=== PATIENT | female | born 1975 | race Caucasian/White ===

== ENCOUNTER → 2019-11-26 10:14 | Outpatient (CLI) | payer OTHER, SELFPAY ==
--- NOTE | ~2019-11-26 | MM_ITS ---
EXAMINATION: MM screening amarjit BI w wilfred HISTORY: Screening mammogram TECHNIQUE: Craniocaudal and mediolateral oblique 3-D tomosynthesis images were obtained and synthetic 2-D images were generated. CAD analysis was submitted and interpreted. COMPARISON: No prior mammogram is available for comparison at this institution. BREAST PARENCHYMAL COMPOSITION: There are scattered areas of fibroglandular density. FINDINGS: There is no evidence of suspicious mass, calcification, or architectural distortion to sugg est malignancy in either breast. There has been no suspicious interval change. IMPRESSION: 1. No mammographic evidence of malignancy. 2. Recommend routine screening mammography in one year. BI-RADS Category 1: Negative Reviewed, dictated and finalized at location A.
== END ==
PROVIDERS: PCP Physician Assistant; Visit Provider Physician Assistant
DX: Z12.31 Encounter for screening mammogram for malignant neoplasm of breast (principal)
CPT/HCPCS: 77063; 77067

== ENCOUNTER → 2020-06-13 10:36 | Outpatient (CLI) | payer OTHER, SELFPAY ==
--- NOTE | ~2020-06-13 | CT_ITS ---
EXAMINATION: CT abdomen pelvis wo con DATE: 06/13/2020 10:50 INDICATION: Unspecified abdominal pain TECHNIQUE: Computed tomography (CT) of the abdomen and pelvis was performed without intravenous contr ast. The dose-length product (DLP) was 695.59 mGy-cm. Automated exposure control and iterative recons truction technique were employed. COMPARISON: None FINDINGS: Minimal dependent atelectasis is present in the lung bases. The heart size is normal. There is a small sliding hiatal hernia. The gallbladder is surgically absent. The liver, spleen, pancreas, and adrenal glands are normal. The right kidney is atrophic. Nonobstructing stones of the right kidn ey measure up to 9 mm. The left kidney is unremarkable. There is mild right hydroureter which continu es to the level of the iliac vessels. No pathologically enlarged abdominal or pelvic lymph nodes are identified. There is no free intraperitoneal gas or evidence of bowel obstruction. There is mild lumb ar spondylosis. IMPRESSION: 1. Atrophy of the right kidney which contains nonobstructing stones measuring up to 9 mm. Mild right hydroureter continuing to the level of the iliac vessels may reflect chronic obstruction. No acute fi ndings evident. Reviewed, dictated and finalized at location A. IMPRESSION: 1. Atrophy of the right kidney which contains nonobstructing stones measuring u p to 9 mm. Mild right hydroureter continuing to the level of the iliac vessels may reflect chronic obstruction. No acute findings evident.
== END ==
PROVIDERS: PCP Physician Assistant; Visit Provider Physician Assistant
DX: R10.9 Unspecified abdominal pain (principal)
CPT/HCPCS: 74176

== ENCOUNTER 2020-07-18 08:17 | Outpatient (NON) | payer OTHER, SELFPAY ==
[2020-07-19 14:13] LABS: SARS-CoV-2 RNA PCR Negative
== END 2020-07-18 08:18 ==
LOC: ANHCOVIDDT 08:19
PROVIDERS: PCP Physician Assistant; Visit Provider Physician Assistant
DX: Z20.828 Contact with and (suspected) exposure to other viral communicable diseases (principal)
CPT/HCPCS: 87635; C9803; U0003

== ENCOUNTER 2022-01-16 01:10 | Day surgery (SDC) | payer OTHER, SELFPAY ==
[2021-12-27 15:21] VITALS: BMI 32.0
[2022-01-16 07:55] VITALS: BP 120/83; PULSE 114; RESP 18; TEMP 36.3; O2SAT 98; BMI 28.3
[2022-01-16] MEDS: LACTATED RINGERS 1,000 ML 150 ML IV CONT (08:16)
--- NOTE | 2022-01-16 08:31 | WPDANESEPPF ---
Anes - Initial Pre Proc Eval Procedure: Operation Date: 01/16/22 09:30 Proposed Procedures p Esophagogastroduodenoscopy & Screening Colonoscopy - Duong Cabrera MD Date/Time: 01/16/22 08:31 Surgeon: Duong Cabrera MD Pre Op Diagnosis: neoplasm screening, GERD Patient Data Age: 46 Gender: F Height: 1.6 m Weight: 72.6 kg Last Vital Signs Temp 97.3 F L 01/16/22 07:55 Pulse 114 H 01/16/22 07:55 Resp 18 01/16/22 07:55 BP 120/83 01/16/22 07:55 Pulse Ox 98 01/16/22 07:55 Allergies Allergy/AdvReac Type Severity Reaction Status Date / Time codeine Allergy Unknown Nausea and Verified 01/16/22 08:05 Vomiting erythromycin base Allergy Unknown Nausea and Verified 01/16/22 08:05 Vomiting latex Allergy Unknown Rash Verified 01/16/22 08:05 Sulfa (Sulfonamide Allergy Unknown Rash Verified 01/16/22 08:05 Antibiotics) Home Medications Medication Instructions Recorded Confirmed Type sertraline 100 mg tablet 100 mg PO DAILY 02/15/20 01/16/22 History bupropion HCl 150 mg PO DAILY 12/27/21 01/16/22 History cimetidine [Tagamet] 400 mg PO BID 12/27/21 01/16/22 History fluticasone furoate-vilanterol 1 inh INHALATION DAILY 12/27/21 01/16/22 History [Breo Ellipta] montelukast 10 mg PO DAILY 12/27/21 01/16/22 History omeprazole magnesium [Prilosec OTC] 20 mg PO DAILY 12/27/21 01/16/22 History Patient hx anesthesia problems: none Family hx anesthesia problems: none Results Review: All pre-operative results and documents have been reviewed as part of the pre-operative evaluation. [facility] Past Medical History Medical History (Updated 02/15/20 @ 14:31 by Katlin Bland) Anxiety Asthma Depression Ectopic ureter Surgical History Surgical History (Updated 02/15/20 @ 14:24 by Arielle Arias CMA) History of cholecystectomy History of hysterectomy Family History Family History (Updated 02/15/20 @ 14:29 by Arielle R. Arias, ETHNOGRAPHER) Mother Family history of gynecological problem Sibling Family history of hypothyroidism Father Family history of malignant neoplasm of esophagus Grandparent BCC (basal cell carcinoma of skin) SCC (squamous cell carcinoma) Other Asthma Diabetes mellitus Family history of cardiovascular disease Family history of malignant neoplasm Social History Social History Smoking status: Never smoker Alcohol intake: never Substance use: never Substance use type: does not use Living arrangements: with family Spiritual care concerns: No Anes - Eval Final PreProcedure Day of Procedure 01/16/22 08:31 Patient weight: overweight Heart: regular rate and rhythm Lungs: clear to auscultation Airway: Mallampati scale class II Neurological: alert and oriented Last oral intake: >/= 8 hours ASA classification: II Emergent: no Anesthetic plan: proceed Anesthesia type and monitoring: general GIVS and standard monitoring Results Review: All pre-operative results and documents have been reviewed as part of the pre-operative evaluation. Informed Consent: The patient's anesthetic plan and its attendant risks and benefits were discussed with the patient/family/POA. Questions were solicited and answers provided to the satisfaction of the patient/family/POA.
--- NOTE | 2022-01-16 08:43 | WPDGICN ---
Assessment and Plan Assessment and plan (1) Dysphagia: Code(s): R13.10 - Dysphagia, unspecified Status: Acute Assessment and Plan: EGD with possible biopsy or dilatation or cautery. (2) Colon cancer screening: Code(s): Z12.11 - Encounter for screening for malignant neoplasm of colon Status: Acute Assessment and Plan: Colonoscopy with possible biopsy or polypectomy or cautery or injection of substances. GI Consult Note Consult date/time: 01/16/22 08:43 HPI: Thania Liz is a 46 year old female who is having persistent reflux symptoms. Despite taking Prilosec daily and an H2 sapna, cimetidine. She continues to have burning in her chest and sometimes up into her throat. Occasional liquid will come up as well. She is careful not to eat or drink before bedtime. She is having difficulty swallowing. In the past she had a stricture that was dilated. She is feeling food hanging up now again. She is also due for colon cancer screening. Review of Systems Review of Systems: All systems reviewed & are unremarkable except as noted in HPI and below PMFSH Past Medical History Medical History Anxiety Asthma Depression Ectopic ureter Surgical History Surgical History History of cholecystectomy History of hysterectomy Family History Family History Mother Family history of gynecological problem Sibling Family history of hypothyroidism Father Family history of malignant neoplasm of esophagus Grandparent BCC (basal cell carcinoma of skin) SCC (squamous cell carcinoma) Other Asthma Diabetes mellitus Family history of cardiovascular disease Family history of malignant neoplasm Social History Social History Smoking status: Never smoker Alcohol intake: never Substance use: never Substance use type: does not use Living arrangements: with family Spiritual care concerns: No Meds Home Medications and Allergies Home Medications Medication Instructions Recorded Confirmed Type sertraline 100 mg tablet 100 mg PO DAILY 02/15/20 01/16/22 History bupropion HCl 150 mg PO DAILY 12/27/21 01/16/22 History cimetidine [Tagamet] 400 mg PO BID 12/27/21 01/16/22 History fluticasone furoate-vilanterol 1 inh INHALATION DAILY 12/27/21 01/16/22 History [Breo Ellipta] montelukast 10 mg PO DAILY 12/27/21 01/16/22 History omeprazole magnesium [Prilosec OTC] 20 mg PO DAILY 12/27/21 01/16/22 History Allergies Allergy/AdvReac Type Severity Reaction Status Date / Time codeine Allergy Unknown Nausea and Verified 01/16/22 08:05 Vomiting erythromycin base Allergy Unknown Nausea and Verified 01/16/22 08:05 Vomiting latex Allergy Unknown Rash Verified 01/16/22 08:05 Sulfa (Sulfonamide Allergy Unknown Rash Verified 01/16/22 08:05 Antibiotics) Vital Signs Vital Signs - 24 hr 01/16/22 07:55 Temperature 36.3 C L Pulse Rate 114 H Respiratory Rate 18 Blood Pressure 120/83 Pulse Oximetry 98 Exam Const: General: alert Orientation/consciousness: patient oriented x3 Resp: Auscultation: clear to auscultation bilaterally Cardio: Rhythm: regular rhythm GI: GI Palp: Yes Soft to palpation and No Tenderness to palpation present (GI) Neuro: General: patient oriented x3
[2022-01-16] MEDS: BENZOCAINE (*SP) 60 ML SPRAY CAN (HURRICAINE) 1 SPRAY MUCOUS MEM (09:01)
--- NOTE | 2022-01-16 09:17 | SUR.OPER ---
EGD start 902 end 908, Colonoscopy start 914 end 923
[2022-01-16 09:28] VITALS: BP 106/65; PULSE 65; RESP 18; O2SAT 100
[2022-01-16 09:38] VITALS: BP 115/83; PULSE 84; RESP 16; O2SAT 99
[2022-01-16 09:48] VITALS: BP 120/78; PULSE 86; RESP 14; O2SAT 98
== END 2022-01-16 10:00 | disposition home or self-care (01) ==
PROVIDERS: PCP Physician Assistant; Visit Provider Internal Medicine Gastroenterology
PROC: 0DJ08ZZ Inspection of Upper Intestinal Tract, Via Natural or Artificial Opening Endoscopic (ICD-10-PCS; CPT 43235; principal; 2022-01-16 09:30)
DX: Z12.11 Encounter for screening for malignant neoplasm of colon (principal); K64.8 Other hemorrhoids; K21.00 Gastro-esophageal reflux disease with esophagitis, without bleeding; K22.2 Esophageal obstruction; K29.70 Gastritis, unspecified, without bleeding; K86.89 Other specified diseases of pancreas; J45.909 Unspecified asthma, uncomplicated; F41.8 Other specified anxiety disorders; Z79.51 Long term (current) use of inhaled steroids
CPT/HCPCS: 45378; 43249; 88305; 88313; C1726; J2704; J7120

== ENCOUNTER → 2022-06-17 11:10 | Outpatient (CLI) | payer OTHER, SELFPAY ==
--- NOTE | ~2022-06-17 | MM_ITS ---
EXAMINATION: MM screening amarjit BI w wilfred HISTORY: Screening TECHNIQUE: Craniocaudal and mediolateral oblique 3-D tomosynthesis images were obtained and synthetic 2-D images were generated. CAD analysis was submitted and interpreted. COMPARISON: Comparison to multiple prior studies sequentially, with oldest reviewed study dated 06/09. BREAST PARENCHYMAL COMPOSITION: Breast composed of scattered areas of fibroglandular density FINDINGS: There is a focal asymmetry in the posterior outer aspect of the right breast on CC view. Th e left breast is stable without evidence for malignancy. IMPRESSION: 1. Focal right breast asymmetry seen on CC view only. 2. Additional mammographic views and possible breast ultrasound are recommended. BI-RADS Category 0: Incomplete: Needs additional imaging evaluation. Reviewed, dictated and finalized at location A. IMPRESSION: 1. Focal right breast asymmetry seen on CC view only. 2. Additional mammographic views and possible breast ultrasound are recommended . BI-RADS Category 0: Incomplete: Needs additional imaging evaluation.
--- NOTE | ~2022-06-17 | DEXA_ITS ---
Bone Density Report Name: KAELA MARQUEZ Age: 47 Sex: Female Ethnicity: White Date of : 1975 Indication: postmenopausal; asthma or emphysema; hysterectomy; Referring Provider: RUFUS, YENIFER Study: Bone densitometry was performed. Exam Date: June 17, 2022 Accession number: [id number] Bone Density: Region BMD T-score Z-score Classification AP Spine (L1-L4) 0.961 -0.8 -0.1 Normal Femoral Neck (Left) 0.675 -1.6 -0.9 Osteopenia Total Hip (Left) 0.802 -1.1 -0.7 Osteopenia Femoral Neck (Right) 0.656 -1.7 -1.1 Osteopenia Total Hip (Right) 0.812 -1.1 -0.6 Osteopenia Total Hip Mean 0.807 -1.1 -0.7 Osteopenia World Health Organization criteria for BMD impression classify patients as: Normal (T-score at or above -1.0), Osteopenia (T-score between -1.0 and -2.5), or Osteoporosis (T-score at or below -2.5). 10-year Fracture Risk(1): Major Osteoporotic Fracture 4.6% Hip Fracture 0.5% Reported Risk Factors: [place] (), Neck BMD=0.656, BMI=26.6 (1) FRAX(R) Version 3.08. Fracture probability calculated for an untreated patient. Fracture probability may be lower if the patient has received treatment. Clinical Information Provided by Patient: Has the following medical conditions: Asthma or Emphysema, Hysterectomy, R kidney failure Patient maximum height was 63.75 Menopause Age: 36 No regular weight bearing exercise Drinks caffeinated beverages Onset of menses at age 12 Number of children 2 Impression: The patient has low bone mass, based on the Right Femoral Neck T-score. The patient has an estimated ten-year risk of hip fracture of 0.5% and an estimated ten-year risk of major fracture of 4.6%, based on the WHO FRAX algorithm. Discussion: BONE DENSITY IS LOW AT ONE OR MORE SKELETAL SITES. This patient's lowest T-score is low at one or more skeletal sites. It meets the World Health Organization's (WHO) criteria for ?low bone mass? (T-score between -1.0 and -2.5). The patient's 10-year risk of fracture as calculated by FRAX is less than the threshold where pharmacological therapy is recommended by the National Osteoporosis Foundation (NOF). However, all treatment decisions require clinical judgment and consideration of individual patient factors, including patient preferences, comorbidities, previous drug use, risk factors not captured in the FRAX model (e.g., frailty, falls, vitamin D deficiency, increased bone turnover, interval significant decline in bone density) and possible under or overestimation of fracture risk by FRAX. The patient should follow a healthful lifestyle (good nutrition with adequate calcium and vitamin D, and appropriate weight-bearing exercise). Follow-Up: Consider repeating this study in 2 to 3 years to reassess this patient's status, or sooner if there is some new
== END ==
PROVIDERS: PCP Physician Assistant; Visit Provider Physician Assistant
DX: Z12.31 Encounter for screening mammogram for malignant neoplasm of breast (principal); Z78.0 Asymptomatic menopausal state; M85.89 Other specified disorders of bone density and structure, multiple sites; R92.8 Other abnormal and inconclusive findings on diagnostic imaging of breast
CPT/HCPCS: 77063; 77067; 77080

== ENCOUNTER → 2022-12-18 07:47 | Outpatient (CLI) | payer OTHER, SELFPAY ==
--- NOTE | ~2022-12-18 | MMUS_ITS ---
EXAMINATION: MM diagnostic amarjit RT w wilfred, US breast RT limited HISTORY: Focal right breast mammographic asymmetry on 06/17/2022 screening mammogram craniocaudal vie w TECHNIQUE: Full field and spot ML, MLO and CC 3-D tomosynthesis images of right breast were performed and synthetic 2-D images were generated. CAD analysis was submitted and interpreted. High resolution upper outer quadrant and lower outer quadrant right breast ultrasound was performed. COMPARISON: 06/17/2022, 05/28/2020, 06/09/2018 bilateral screening mammogram examinations BREAST PARENCHYMAL COMPOSITION: The breasts are heterogeneously dense, which may obscure small masses . FINDINGS: MAMMOGRAPHIC FINDINGS: No suspicious mass or architectural distortion, malignant calcification, skin thickening or retractio n is evident. The heterogeneously dense stroma in the upper outer and lower-outer quadrants of right breast may obs cure masses. ULTRASOUND: Real-time imaging of the upper outer and lower-outer quadrants of the right breast was performed. 7:00 5 cm from nipple: Parallel circumscribed 6.5 x 3.1 x 6.2 mm hypoechoic lesion without internal v ascularity or posterior shadowing, benign in appearance. 7:00 5 cm from nipple: 7.3 x 1.5 x 8.9 mm well-circumscribed sonolucency through transmission, consis tent with small cyst 8:00 5 cm from nipple: Circumscribed parallel 7.2 x 3.7 x 10 mm hypoechoic lesion without internal va scularity or posterior shadowing IMPRESSION: 1. Benign findings 2. Routine annual mammographic screening is recommended BI-RADS Category 2: Benign finding(s). Reviewed, dictated and finalized at location A. IMPRESSION: 1. Benign findings 2. Routine annual mammographic screening is recommended BI-RADS Category 2: Benign finding(s).
== END ==
PROVIDERS: PCP Physician Assistant; Visit Provider Physician Assistant
DX: R92.8 Other abnormal and inconclusive findings on diagnostic imaging of breast (principal)
CPT/HCPCS: 76642; 77061; 77065; G0279